=== PATIENT | female | born 1995 | race Caucasian/White ===

== ENCOUNTER 2018-07-18 10:44 | Emergency (ER) | payer BC, SELFPAY ==
[2018-07-18] MEDS ORDERED: DIPHENHYDRAMINE 25 MG TAB/CAP ONE (11:41)
--- NOTE | 2018-07-18 12:33 | ER ---
Nurse's Notes [facility] Name: Kathy Grier Age: 23 yrs Sex: Female : 1995 Arrival Date: 07/18/2018 Time: 10:48 Bed 20 Private MD: Diagnosis: Acute tonsillitis;Urticaria, unspecified Presentation: 07/18 11:06 Presenting complaint: Patient states: migraine started last night and took Theraflu and sv Nyquil, woke up this morning with a rash widespread over body. c/o n/v. Transition of care: patient was not received from another setting of care. Onset of symptoms was July 18, 2018. Care prior to arrival: None. 11:06 Method Of Arrival: Ambulatory sv 11:06 Acuity: CHITO 3 sv 12:33 Risk Assessment: Do you want to hurt yourself or someone else? Patient reports no aj1 desire to harm self or others. Initial Sepsis Screen: Does the patient meet any 2 criteria? No. Patient's initial sepsis screen is negative. Does the patient have a suspected source of infection? No. Patient's initial sepsis screen is negative. 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 - Social history:: Smoking status: Patient/guardian denies using tobacco. - Ebola Screening: : Patient denies travel to an Ebola-affected area in the 21 days before illness onset. Screenin:43 Abuse screen: Denies threats or abuse. Denies injuries from another. Nutritional aj1 screening: No deficits noted. Tuberculosis screening: No symptoms or risk factors identified. 12:33 Fall Risk None identified. aj1 Assessment: 11:43 General: Appears in no apparent distress. comfortable, Behavior is calm, cooperative, aj1 appropriate for age. Pain: Denies pain. Neuro: Level of Consciousness is awake, alert, obeys commands, Oriented to person, place, time, situation. Cardiovascular: Patient's skin is warm and dry. Respiratory: Airway is patent Respiratory effort is even, unlabored, Respiratory pattern is regular, symmetrical. GI: Reports nausea. : No signs and/or symptoms were reported regarding the genitourinary system. EENT: No signs and/or symptoms were reported regarding the EENT system. Derm: Rash noted that is red, raised, on back, abdomen, right arm, left arm, right leg and left leg. Musculoskeletal: No signs and/or symptoms reported regarding the musculoskeletal system. Circulation, motion, and sensation intact. 12:33 Reassessment: Patient appears in no apparent distress at this time. No changes from aj1 previously documented assessment. Patient and/or family updated on plan of care and expected duration. Pain level reassessed. Patient is alert, oriented x 3, equal unlabored respirations, skin warm/dry/pink. Vital Signs: 11:07 BP 134 / 85; Pulse 83; Resp 18; Temp 98.1(O); Pulse Ox 99% ; Weight 97.07 kg; Height 5 sv ft. 9 in. (175.26 cm); Pain 0/10; 11:07 Body Mass Index 31.60 (97.07 kg, 175.26 cm) sv ED Course: 10:48 Patient arrived in ED. tw3 11:07 Triage completed. sv 11:08 Arm band placed on. sv 11:09 Mildred Moya, MIGUELINA is Primary Nurse. aj1 11:17 Eloy Haas PA is PHCP. cp 11:17 Jose Martins MD is Attending Physician. cp 11:43 Patient has correct armband on for positive identification. Bed in low position. Call aj1 light in reach. Side rails up X 1. 11:43 No provider procedures requiring assistance completed. aj1 12:33 Patient did not have IV access during this emergency room visit. aj1 Administered Medications: 11:41 Drug: Benadryl 50 mg Route: PO; aj1 12:29 Follow up: Response: No adverse reaction aj1 12:29 Drug: Decadron 10 mg Route: PO; aj1 12:52 Follow up: Response: No adverse reaction aj1 12:29 Drug: Pepcid 20 mg Route: PO; aj1 12:52 Follow up: Response: No adverse reaction aj1 Outcome: 12:32 Discharge ordered by . cp 12:53 Discharged to home ambulatory. aj1 12:53 Condition: good 12:53 Discharge instructions given to patient, Instructed on discharge instructions, follow up and referral plans. medication usage, Demonstrated understanding of instructions, follow-up care, medications, Prescriptions given X 3. 12:53 Patient left the ED. aj1 Signatures: Mildred Moya RN RN aj1 Lila Steven RN RN Eloy Albert, NICOLE Tariq, Kandace tw3
--- NOTE | 2018-07-18 12:33 | EDPHYS ---
Physician Documentation [facility] Name: Kathy Grier Age: 23 yrs Sex: Female : 1995 Arrival Date: 07/18/2018 Time: 10:48 Bed 20 Private MD: ED Physician Jose Martins HPI: 07/18 11:25 This 23 yrs old Female presents to ER via Ambulatory with complaints of Rash. cp 11:25 The patient's rash thought to be caused by medication. The rash is located on the body cp diffusely. The rash can be described as urticarial. Onset: The symptoms/episode began/occurred this morning. 11:25 Patient reports she took OTC Theraflu and Nyquil last night and woke up this morning cp with hrash. Patient reports she has taken Nyquil previously w/o developing rash but Theraflu is new. 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 - Social history:: Smoking status: Patient/guardian denies using tobacco. - Ebola Screening: : Patient denies travel to an Ebola-affected area in the 21 days before illness onset. ROS: 11:30 Constitutional: Negative for body aches, chills, fever, poor PO intake. cp 11:30 Eyes: Negative for injury, pain, redness, and discharge. cp 11:30 ENT: Positive for sore throat, Negative for drainage from ear(s), ear pain, difficulty swallowing, difficulty handling secretions. 11:30 Cardiovascular: Negative for chest pain, edema, palpitations. 11:30 Respiratory: Negative for cough, shortness of breath, wheezing. 11:30 Abdomen/GI: Negative for abdominal pain, vomiting, diarrhea, constipation. 11:30 : Negative for urinary symptoms. 11:30 Skin: Positive for rash, diffusely. 11:30 Neuro: Negative for altered mental status, dizziness, headache, weakness. 11:30 All other systems are negative. Exam: 11:35 Constitutional: The patient appears in no acute distress, alert, awake, non-toxic, well cp developed, well nourished. 11:35 Head/Face: Normocephalic, atraumatic. cp 11:35 Eyes: Periorbital structures: appear normal, Conjunctiva: normal, no exudate, no injection, Sclera: no appreciated abnormality, Lids and lashes: appear normal, bilaterally. 11:35 ENT: External ear(s): are unremarkable, Ear canal(s): are normal, clear, TM's: bulging, is not appreciated, bilaterally, dullness, bilaterally, erythema, is not appreciated, bilaterally, Nose: is normal, Mouth: Lips: moist, Oral mucosa: pink and intact, moist, Posterior pharynx: Airway: no evidence of obstruction, patent, Tonsils: bilaterally enlarged, with erythema, with exudate, Uvula: midline, erythema, that is moderate, Voice: is normal. 11:35 Neck: ROM/movement: is normal, is supple, without pain, no range of motions limitations, no meningismus, no nuchal rigidity, Lymph nodes: lymphadenopathy is appreciated, anterior cervical nodes. 11:35 Chest/axilla: Palpation: is normal, no crepitus, no tenderness. 11:35 Cardiovascular: Rate: normal, Rhythm: regular, Edema: is not appreciated, JVD: is not appreciated. 11:35 Respiratory: the patient does not display signs of respiratory distress, Respirations: normal, no use of accessory muscles, no retractions, no splinting, no tachypnea, labored breathing, is not present, Breath sounds: are clear throughout, no decreased breath sounds, no stridor, no wheezing. 11:35 Abdomen/GI: Exam negative for discomfort, distension, guarding. 11:35 Skin: consistent with urticaria, and is diffusely located. 11:35 Neuro: Orientation: to person, place \T\ time. Mentation: is normal, Cerebellar function: is grossly normal, Motor: moves all fours, strength is normal, Sensation: is normal. Vital Signs: 11:07 BP 134 / 85; Pulse 83; Resp 18; Temp 98.1(O); Pulse Ox 99% ; Weight 97.07 kg; Height 5 sv ft. 9 in. (175.26 cm); Pain 0/10; 11:07 Body Mass Index 31.60 (97.07 kg, 175.26 cm) sv MDM: 11:18 Patient medically screened. 12:30 Data reviewed: vital signs, nurses notes, lab test result(s), and as a result, I will cp discharge patient. 12:30 Counseling: I had a detailed discussion with the patient and/or guardian regarding: the cp historical points, exam findings, and any diagnostic results supporting the discharge/admit diagnosis, lab results, to return to the emergency department if symptoms worsen or persist or if there are any questions or concerns that arise at home. 07/18 11:24 Order name: Strep; Complete Time: 12:07 cp 07/18 12:07 Interpretation: Reviewed. 07/18 11:24 Order name: Influenza Screen (a \T\ B); Complete Time: 12:25 07/18 12:25 Interpretation: Reviewed. 07/18 11:57 Order name: Urine Dipstick--Ancillary (enter results) [facility] 07/18 11:58 Order name: Urine --Ancillary (enter results) [facility] 07/18 12:05 Order name: Throat Culture [facility] 07/18 11:24 Order name: Urine Test (obtain specimen); Complete Time: 12:29 cp 07/18 11:24 Order name: Urine Dipstick-Ancillary (obtain specimen); Complete Time: 12:29 cp Administered Medications: 11:41 Drug: Benadryl 50 mg Route: PO; aj1 12:29 Follow up: Response: No adverse reaction aj1 12:29 Drug: Decadron 10 mg Route: PO; aj1 12:52 Follow up: Response: No adverse reaction aj1 12:29 Drug: Pepcid 20 mg Route: PO; aj1 12:52 Follow up: Response: No adverse reaction aj1 Disposition: 07/19 07:05 Co-signature as Attending Physician, Jose Martins MD I agree with the assessment and wa plan of care. Disposition: 07/18/18 12:32 Discharged to Home. Impression: Acute tonsillitis, Urticaria, unspecified. - Condition is Stable. - Discharge Instructions: Hives, Tonsillitis. - Prescriptions for Clindamycin HCl 300 mg Oral Capsule - take 1 capsule by ORAL route every 6 hours for 10 days; 40 capsule. Medrol (John) 4 mg Oral Tablets, Dose Pack - take 1 tablet by ORAL route as directed - follow package instructions; 1 packet. Pepcid 20 mg Oral Tablet - take 1 tablet by ORAL route every 12 hours for 5 days; 10 tablet. - Medication Reconciliation Form, Thank You Letter, Antibiotic Education, Prescription Opioid Use form. - Follow up: Private Physician; When: 48 Hours; Reason: Recheck today's complaints. - Problem is new. - Symptoms have improved. Signatures: Dispatcher [employer] EDMildred Tristan RN RN aj1 Lila Steven RN RN sv Eloy Haas PA PA cp Appiah, William, MD MD in Corrections: (The following items were deleted from the chart) 07/18 12:53 12:32 07/18/2018 12:32 Discharged to Home. Impression: Acute tonsillitis; Urticaria, aj1 unspecified. Condition is Stable. Forms are Medication Reconciliation Form, Thank You Letter, Antibiotic Education, Prescription Opioid Use. Follow up: Private Physician; When: 48 Hours; Reason: Recheck today's complaints. Problem is new. Symptoms have improved. cp
[2018-07-18] MEDS ORDERED: DEXAMETHASONE 4 MG TAB ONE (12:37)
[2018-07-18] MEDS ORDERED: FAMOTIDINE 20 MG TAB ONE (12:37)
[2018-07-18 14:40] LABS: Urine Blood NEGATIVE (NEG); Urine Glucose NEGATIVE (NEG); Urine Protein NEGATIVE (NEG)
== END 2018-07-18 12:53 | disposition home or self-care (01) ==
LOC: ER 10:44
DX: J03.90 Acute tonsillitis, unspecified (principal); L50.9 Urticaria, unspecified; Z88.8 Allergy status to other drugs, medicaments and biological substances
CPT/HCPCS: 81003; 81025; 87070; 87081; 87804; 99283

== ENCOUNTER 2018-07-20 10:18 | Emergency (ER) | payer BC, SELFPAY ==
[2018-07-20] MEDS ORDERED: MAGNE/ALUM HYDROXD 30 ML UCUP ONE (11:03)
[2018-07-20] MEDS ORDERED: DEXAMETHASONE 10 MG/ML VIAL ONE (11:03)
[2018-07-20] MEDS ORDERED: CEFTRIAXONE/SWI 1gm 1 GM/10 ML SYR ONE (11:04)
[2018-07-20] MEDS ORDERED: LIDOCAINE VISCOUS 2% SOLN 15 ML UDC ONE (11:04)
[2018-07-20] MEDS ORDERED: NA CHLORIDE 0.9% 1,000 ML ONE (11:04)
[2018-07-20 11:18] LABS: BUN Blood Urea Nitrogen 9 mg/dL (7-18); Bicarbonate 26 mmol/L (21-32); Glucose Level 94 mg/dL (74-106); Potassium 3.9 mmol/L (3.5-5.1); Sodium Level 140 mmol/L (136-145)
--- NOTE | 2018-07-20 11:29 | ER ---
Nurse's Notes [facility] Name: Kathy Grier Age: 23 yrs Sex: Female : 1995 Arrival Date: 07/20/2018 Time: 10:22 Bed 12 Private MD: Diagnosis: Streptococcal pharyngitis Presentation: 07/20 10:22 Presenting complaint: Patient states: I was seen here a couple days ago, reports sg started medications but is not getting better, tonsils are swelling up more, has not had follow up with ENT. Transition of care: patient was not received from another setting of care. Onset of symptoms was July 20, 2018. Risk Assessment: Do you want to hurt yourself or someone else? Patient reports no desire to harm self or others. Initial Sepsis Screen: Does the patient meet any 2 criteria? No. Patient's initial sepsis screen is negative. Does the patient have a suspected source of infection? No. Patient's initial sepsis screen is negative. Care prior to arrival: None. 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 - Social history:: Smoking status: Patient/guardian denies using tobacco. - Ebola Screening: : Patient negative for fever greater than or equal to 101.5 degrees Fahrenheit, and additional compatible Ebola Virus Disease symptoms Patient denies exposure to infectious person Patient denies travel to an Ebola-affected area in the 21 days before illness onset No symptoms or risks identified at this time. Screenin:47 Abuse screen: Denies threats or abuse. Denies injuries from another. Nutritional iw screening: No deficits noted. Tuberculosis screening: No symptoms or risk factors identified. Fall Risk IV access (20 points). Assessment: 11:05 General: Appears in no apparent distress. uncomfortable, Behavior is calm, cooperative. iw General: Reports feeling ill for > 3 days, fatigue for. Pain: Complains of pain in throat. Pain: Complains of pain in head. Neuro: Level of Consciousness is awake, alert, obeys commands, Oriented to person, place, time, situation. Cardiovascular: Patient's skin is warm and dry. Respiratory: Airway is patent Respiratory effort is even, unlabored, Breath sounds are clear bilaterally. EENT: Throat is reddened has patchy exudate has enlarged tonsils bilaterally with gag reflex present, Reports difficulty swallowing. Derm: Skin is intact, is healthy with good turgor. Musculoskeletal: Range of motion: intact in all extremities. Vital Signs: 10:23 BP 132 / 83; Pulse 100; Resp 19; Pulse Ox 98% on R/A; Weight 97.07 kg; Height 5 ft. 9 sg in. (175.26 cm); Pain 8/10; 10:25 Temp 99.8(TE); sg 10:23 Body Mass Index 31.60 (97.07 kg, 175.26 cm) sg ED Course: 10:22 Patient arrived in ED. sg 10:23 Triage completed. sg 10:23 [facility]C [facility]. kb 10:23 Dionte Guadarrama MD is Attending Physician. kb 10:25 Arm band placed on. sg 10:47 Zahra Aranda, RN is Primary Nurse. iw 10:47 Initial lab(s) drawn, by me, sent to lab. Inserted saline lock: 22 gauge in right iw antecubital area, using aseptic technique. 11:05 Patient has correct armband on for positive identification. iw 11:48 No provider procedures requiring assistance completed. IV discontinued, intact, iw bleeding controlled, No redness/swelling at site. Pressure dressing applied. Administered Medications: 11:00 Drug: Rocephin 1 grams Route: IV; Rate: calculated rate; Site: right antecubital; iw 11:00 Drug: NS 0.9% 1000 ml Route: IV; Rate: 1000 ml; Site: right antecubital; iw 11:01 Drug: Decadron - Dexamethasone 10 mg Route: IVP; Site: right antecubital; iw 11:04 Drug: GI Cocktail without - (Maalox Suspension 30 ml, Lidocaine Liquid 2 % 15 iw ml) Route: PO; Outcome: 11:28 Discharge ordered by . kb 11:48 Discharged to home ambulatory, with friend. iw 11:48 Condition: good 11:48 Discharge instructions given to patient, Instructed on discharge instructions, follow up and referral plans. medication usage, Demonstrated understanding of instructions, follow-up care, medications, Prescriptions given X 1. 11:49 Patient left the ED. iw Signatures: Morena Ramirez FNP-C FNP-Aamir Rico, RN RN sg Zahra Aranda RN RN iw
--- NOTE | 2018-07-20 11:29 | EDPHYS ---
Physician Documentation [facility] Name: Kathy Grier Age: 23 yrs Sex: Female : 1995 Arrival Date: 07/20/2018 Time: 10:22 Bed 12 Private MD: ED Physician Dionte Guadarrama HPI: 07/20 11:02 This 23 yrs old Female presents to ER via Ambulatory with complaints of Sore kb Throat. 11:02 The patient presents with sore throat. The patient describes throat pain as constant. kb Onset: The symptoms/episode began/occurred last week. Severity of symptoms: At their worst the symptoms were moderate, in the emergency department the symptoms are unchanged. Modifying factors: The symptoms are alleviated by nothing, the symptoms are aggravated by swallowing, Patient's oral intake status: limited fluid intake, limited food intake, Denies contact with similarly ill indivduals. Associated signs and symptoms: Pertinent positives: fever, Sore throat. The patient has not experienced similar symptoms in the past. The patient has been recently seen at the [facility] Emergency Department, last week, for similar complaints labs were performed, was given a prescription for antibiotics. 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 - Social history:: Smoking status: Patient/guardian denies using tobacco. - Ebola Screening: : Patient negative for fever greater than or equal to 101.5 degrees Fahrenheit, and additional compatible Ebola Virus Disease symptoms Patient denies exposure to infectious person Patient denies travel to an Ebola-affected area in the 21 days before illness onset No symptoms or risks identified at this time. ROS: 11:01 Neck: Negative for injury, pain, and swelling, Cardiovascular: Negative for chest pain, kb palpitations, and edema, Respiratory: Negative for shortness of breath, cough, wheezing, and pleuritic chest pain, Abdomen/GI: Negative for abdominal pain, nausea, vomiting, diarrhea, and constipation, Back: Negative for injury and pain, MS/Extremity: Negative for injury and deformity, Skin: Negative for injury, rash, and discoloration, Neuro: Negative for headache, weakness, numbness, tingling, and seizure. 11:01 Constitutional: Positive for fever. 11:01 ENT: Positive for sore throat. Exam: 11:01 Constitutional: This is a well developed, well nourished patient who is awake, alert, kb and in no acute distress. Head/Face: Normocephalic, atraumatic. Chest/axilla: Normal chest wall appearance and motion. Nontender with no deformity. No lesions are appreciated. Cardiovascular: Regular rate and rhythm with a normal S1 and S2. No gallops, murmurs, or rubs. Normal PMI, no JVD. No pulse deficits. Respiratory: Lungs have equal breath sounds bilaterally, clear to auscultation and percussion. No rales, rhonchi or wheezes noted. No increased work of breathing, no retractions or nasal flaring. Abdomen/GI: Soft, non-tender, with normal bowel sounds. No distension or tympany. No guarding or rebound. No evidence of tenderness throughout. Skin: Warm, dry with normal turgor. Normal color with no rashes, no lesions, and no evidence of cellulitis. MS/ Extremity: Pulses equal, no cyanosis. Neurovascular intact. Full, normal range of motion. Neuro: Awake and alert, GCS 15, oriented to person, place, time, and situation. Cranial nerves II-XII grossly intact. Motor strength 5/5 in all extremities. Sensory grossly intact. Cerebellar exam normal. Normal gait. 11:01 ENT: Posterior pharynx: Airway: normal, Tonsils: bilaterally enlarged, with erythema, with exudate, Uvula: normal, midline, swelling, that is marked, erythema, that is marked, exudate, that is moderate. Vital Signs: 10:23 BP 132 / 83; Pulse 100; Resp 19; Pulse Ox 98% on R/A; Weight 97.07 kg; Height 5 ft. 9 sg in. (175.26 cm); Pain 8/10; 10:25 Temp 99.8(TE); sg 10:23 Body Mass Index 31.60 (97.07 kg, 175.26 cm) sg MDM: 10:30 Patient medically screened. kb 11:02 Data reviewed: vital signs, nurses notes. Data interpreted: Pulse oximetry: on room air kb is 98 %. Interpretation: normal. 11:28 Counseling: I had a detailed discussion with the patient and/or guardian regarding: the kb historical points, exam findings, and any diagnostic results supporting the discharge/admit diagnosis, lab results, the need for outpatient follow up, a family practitioner, to return to the emergency department if symptoms worsen or persist or if there are any questions or concerns that arise at home. 11:28 Data reviewed: old medical records, Throat culture from recent visit shows 3+ beta kb hemolytic strep. 07/20 10:35 Order name: Basic Metabolic Panel; Complete Time: 11:20 kb 07/20 10:35 Order name: Swisher Screen Profile; Complete Time: 11:26 kb 07/20 10:35 Order name: IV Start; Complete Time: 10:47 kb Administered Medications: 11:00 Drug: Rocephin 1 grams Route: IV; Rate: calculated rate; Site: right antecubital; iw 11:00 Drug: NS 0.9% 1000 ml Route: IV; Rate: 1000 ml; Site: right antecubital; iw 11:01 Drug: Decadron - Dexamethasone 10 mg Route: IVP; Site: right antecubital; iw 11:04 Drug: GI Cocktail without - (Maalox Suspension 30 ml, Lidocaine Liquid 2 % 15 iw ml) Route: PO; Disposition: 15:14 Co-signature as Attending Physician, Dionte Guadarrama MD. rn Disposition: 07/20/18 11:28 Discharged to Home. Impression: Streptococcal pharyngitis. - Condition is Stable. - Discharge Instructions: Strep Throat, [id number]. - Prescriptions for Augmentin 875- 125 mg Oral Tablet - take 1 tablet by ORAL route every 12 hours for 10 days; 20 tablet. - Medication Reconciliation Form, Thank You Letter, Antibiotic Education, Prescription Opioid Use, Work release form form. - Follow up: Emergency Department; When: As needed; Reason: Worsening of condition. Follow up: Private Physician; When: 2 - 3 days; Reason: Recheck today's complaints, Continuance of care, Re-evaluation by your physician. Signatures: Dispatcher [employer] Morena Moss FNP-C FNP-Ckb Gay, Steven, RN RN sg Williams, Irene, RN RN iw Nieto, Roman, MD MD rn unit manager: (The following items were deleted from the chart) 11:49 11:28 07/20/2018 11:28 Discharged to Home. Impression: Streptococcal pharyngitis. iw Condition is Stable. Forms are Medication Reconciliation Form, Thank You Letter, Antibiotic Education, Prescription Opioid Use. Follow up: Emergency Department; When: As needed; Reason: Worsening of condition. Follow up: Private Physician; When: 2 - 3 days; Reason: Recheck today's complaints, Continuance of care, Re-evaluation by your physician. kb
== END 2018-07-20 11:49 | disposition home or self-care (01) ==
LOC: ER 10:18
DX: J02.0 Streptococcal pharyngitis (principal); R03.0 Elevated blood-pressure reading, without diagnosis of hypertension; Z88.8 Allergy status to other drugs, medicaments and biological substances
CPT/HCPCS: 36415; 80048; 86308; 96374; 96375; 99284; J0696; J1100; J7030

== ENCOUNTER 2018-07-31 17:55 | Emergency (ER) | payer BC ==
--- NOTE | 2018-07-31 18:54 | EDPHYS ---
Physician Documentation [facility] Name: Kathy Grier Age: 23 yrs Sex: Female : 1995 Arrival Date: 07/31/2018 Time: 17:57 Bed 12 Private MD: ED Physician Diotne Guadarrama HPI: 07/31 18:48 This 23 yrs old Female presents to ER via Ambulatory with complaints of Sore kb Throat. 18:48 The patient presents with sore throat. The patient describes throat pain as constant. kb Onset: The symptoms/episode began/occurred last night. Severity of symptoms: At their worst the symptoms were mild, moderate, in the emergency department the symptoms are unchanged. Modifying factors: The symptoms are alleviated by nothing, the symptoms are aggravated by swallowing, Patient's oral intake status: limited fluid intake, limited food intake, Denies contact with similarly ill indivduals. Associated signs and symptoms: Pertinent positives: Sore throat vomiting. The patient has experienced similar episodes in the past, a few times. The patient has not recently seen a physician. Pt reports she recently had strep, took augmentin and symptoms resolved. Last night started vomiting, then throat started hurting again. Reports throat has been sore since then. . 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 - Social history:: Smoking status: Patient/guardian denies using tobacco. - Ebola Screening: : No symptoms or risks identified at this time. ROS: 18:48 Constitutional: Negative for fever, chills, and weight loss, Neck: Negative for injury, kb pain, and swelling, Cardiovascular: Negative for chest pain, palpitations, and edema, Respiratory: Negative for shortness of breath, cough, wheezing, and pleuritic chest pain, Back: Negative for injury and pain, : Negative for injury, bleeding, discharge, and swelling, MS/Extremity: Negative for injury and deformity, Skin: Negative for injury, rash, and discoloration, Neuro: Negative for headache, weakness, numbness, tingling, and seizure. 18:48 ENT: Positive for sore throat. 18:48 Abdomen/GI: Positive for nausea and vomiting. Exam: 18:48 Constitutional: This is a well developed, well nourished patient who is awake, alert, kb and in no acute distress. Head/Face: Normocephalic, atraumatic. Neck: Trachea midline, no thyromegaly or masses palpated, and no cervical lymphadenopathy. Supple, full range of motion without nuchal rigidity, or vertebral point tenderness. No Meningismus. Chest/axilla: Normal chest wall appearance and motion. Nontender with no deformity. No lesions are appreciated. Cardiovascular: Regular rate and rhythm with a normal S1 and S2. No gallops, murmurs, or rubs. Normal PMI, no JVD. No pulse deficits. Respiratory: Lungs have equal breath sounds bilaterally, clear to auscultation and percussion. No rales, rhonchi or wheezes noted. No increased work of breathing, no retractions or nasal flaring. Abdomen/GI: Soft, non-tender, with normal bowel sounds. No distension or tympany. No guarding or rebound. No evidence of tenderness throughout. Back: No spinal tenderness. No costovertebral tenderness. Full range of motion. Skin: Warm, dry with normal turgor. Normal color with no rashes, no lesions, and no evidence of cellulitis. MS/ Extremity: Pulses equal, no cyanosis. Neurovascular intact. Full, normal range of motion. Neuro: Awake and alert, GCS 15, oriented to person, place, time, and situation. Cranial nerves II-XII grossly intact. Motor strength 5/5 in all extremities. Sensory grossly intact. Cerebellar exam normal. Normal gait. 18:48 ENT: Posterior pharynx: Airway: normal, Tonsils: bilaterally enlarged, with erythema, Uvula: edematous, erythema, swelling, that is mild, erythema, that is marked. Vital Signs: 18:04 BP 128 / 99; Pulse 105; Resp 18 S; Temp 99.2(O); Pulse Ox 97% on R/A; Weight 97.07 kg aa5 (R); Height 5 ft. 8 in. (172.72 cm) (R); Pain 7/10; 18:04 Body Mass Index 32.54 (97.07 kg, 172.72 cm) aa5 MDM: 18:03 Patient medically screened. kb 18:51 Data reviewed: vital signs, nurses notes. Data interpreted: Pulse oximetry: on room air kb is 97 %. Interpretation: normal. Counseling: I had a detailed discussion with the patient and/or guardian regarding: the historical points, exam findings, and any diagnostic results supporting the discharge/admit diagnosis, lab results, the need for outpatient follow up, a family practitioner, to return to the emergency department if symptoms worsen or persist or if there are any questions or concerns that arise at home. 07/31 18:10 Order name: Strep; Complete Time: 18:48 kb 07/31 18:44 Order name: Throat Culture EDMS Administered Medications: 19:25 Drug: Doxycycline 100 mg Route: PO; aj1 Disposition: 07/31/18 18:54 Discharged to Home. Impression: Acute pharyngitis, unspecified. - Condition is Stable. - Discharge Instructions: Strep Throat, [id number], Pharyngitis, [id number]. - Prescriptions for Doxycycline Hyclate 100 mg Oral Tablet - take 1 tablet by ORAL route every 12 hours; 20 tablet. Zofran 4 mg Oral Tablet - take 1 tablet by ORAL route every 6 hours As needed; 20 tablet. - Medication Reconciliation Form, Thank You Letter, Antibiotic Education, Prescription Opioid Use, Work release form form. - Follow up: Emergency Department; When: As needed; Reason: Worsening of condition. Follow up: Private Physician; When: 2 - 3 days; Reason: Recheck today's complaints, Continuance of care, Re-evaluation by your physician. Follow up: Lila Conner MD; When: 2 - 3 days; Reason: Recheck today's complaints. Addendum: 08/02/2018 07:03 Co-signature as Attending Physician, Dionte Guadarrama MD. r n Signatures: Dispatcher [employer] [facility] Morena Ramirez, GRACE PERLAP-Mildred Escoto RN RN aj1 Dionte Guadarrama MD MD rn Calderon, Audri, RN RN aa5 Corrections: (The following items were deleted from the chart) 07/31 18:54 18:54 07/31/2018 18:54 Discharged to Home. Impression: Acute pharyngitis, unspecified. kb Condition is Stable. Forms are Medication Reconciliation Form, Thank You Letter, Antibiotic Education, Prescription Opioid Use. Follow up: Emergency Department; When: As needed; Reason: Worsening of condition. Follow up: Private Physician; When: 2 - 3 days; Reason: Recheck today's complaints, Continuance of care, Re-evaluation by your physician. kb 19:25 18:54 07/31/2018 18:54 Discharged to Home. Impression: Acute pharyngitis, unspecified. aj1 Condition is Stable. Discharge Instructions: Strep Throat, Rfkc-ls-[id number], Pharyngitis, Yogs-qw-Dnbe. Prescriptions for Doxycycline Hyclate 100 mg Oral Tablet - take 1 tablet by ORAL route every 12 hours; 20 tablet. and Forms are Medication Reconciliation Form, Thank You Letter, Antibiotic Education, Prescription Opioid Use. Follow up: Emergency Department; When: As needed; Reason: Worsening of condition. Follow up: Private Physician; When: 2 - 3 days; Reason: Recheck today's complaints, Continuance of care, Re-evaluation by your physician. Follow up: Lila Conner; When: 2 - 3 days; Reason: Recheck today's complaints. kb 19:32 19:25 07/31/2018 18:54 Discharged to Home. Impression: Acute pharyngitis, unspecified. aj1 Condition is Stable. Discharge Instructions: Strep Throat, Mvyr-hl-Enmp, Pharyngitis, [id number]-cc-[id number]. Prescriptions for Doxycycline Hyclate 100 mg Oral Tablet - take 1 tablet by ORAL route every 12 hours; 20 tablet, Zofran 4 mg Oral Tablet - take 1 tablet by ORAL route every 6 hours As needed; 20 tablet. and Forms are Medication Reconciliation Form, Thank You Letter, Antibiotic Education, Prescription Opioid Use. Follow up: Emergency Department; When: As needed; Reason: Worsening of condition. Follow up: Private Physician; When: 2 - 3 days; Reason: Recheck today's complaints, Continuance of care, Re-evaluation by your physician. Follow up: Lila Conner; When: 2 - 3 days; Reason: Recheck today's complaints. aj1
--- NOTE | 2018-07-31 18:54 | ER ---
Nurse's Notes [facility] Name: Kathy Grier Age: 23 yrs Sex: Female : 1995 Arrival Date: 07/31/2018 Time: 17:57 Bed 12 Private MD: Diagnosis: Acute pharyngitis, unspecified Presentation: 07/31 18:02 Presenting complaint: Patient states: sore throat that began last night. Reports cough aa5 today. 18:02 Transition of care: patient was not received from another setting of care. Onset of aa5 symptoms was July 2018. Risk Assessment: Do you want to hurt yourself or someone else? Patient reports no desire to harm self or others. Initial Sepsis Screen: Does the patient meet any 2 criteria? No. Patient's initial sepsis screen is negative. Does the patient have a suspected source of infection? No. Patient's initial sepsis screen is negative. Care prior to arrival: None. 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 - Social history:: Smoking status: Patient/guardian denies using tobacco. - Ebola Screening: : No symptoms or risks identified at this time. Screenin:12 Abuse screen: Denies threats or abuse. Denies injuries from another. Nutritional mg2 screening: No deficits noted. Tuberculosis screening: No symptoms or risk factors identified. Fall Risk None identified. Assessment: 18:11 General: Appears in no apparent distress. comfortable, Behavior is calm, cooperative. mg2 Pain: Complains of pain in throat. Neuro: Level of Consciousness is awake, alert, obeys commands, Oriented to person, place, time, situation. Cardiovascular: Capillary refill < 3 seconds Patient's skin is warm and dry. Respiratory: Airway is patent Respiratory effort is even, unlabored, Breath sounds are clear bilaterally. in right upper lobe, left upper lobe, right middle lobe and left lower lobe. GI: No signs and/or symptoms were reported involving the gastrointestinal system. : No signs and/or symptoms were reported regarding the genitourinary system. EENT: Derm: Skin is intact, is healthy with good turgor, Skin is pink, warm \T\ dry. normal. Musculoskeletal: No signs and/or symptoms reported regarding the musculoskeletal system. Vital Signs: 18:04 BP 128 / 99; Pulse 105; Resp 18 S; Temp 99.2(O); Pulse Ox 97% on R/A; Weight 97.07 kg aa5 (R); Height 5 ft. 8 in. (172.72 cm) (R); Pain 7/10; 18:04 Body Mass Index 32.54 (97.07 kg, 172.72 cm) aa5 ED Course: 17:57 Patient arrived in ED. as 17:57 Morena Ramirez FNP-C [facility]. kb 17:57 Dionte Guadarrama MD is Attending Physician. kb 18:02 Jam Jones, MIGUELINA is Primary Nurse. mg2 18:02 Arm band placed on. aa5 18:03 Triage completed. aa5 18:12 No provider procedures requiring assistance completed. Patient did not have IV access mg2 during this emergency room visit. 18:54 Lila Conner MD is Referral Physician. kb 19:28 Primary Nurse role handed off by Jam Jones RN aj1 Administered Medications: 19:25 Drug: Doxycycline 100 mg Route: PO; aj1 Outcome: 18:54 Discharge ordered by . kb 19:25 Discharged to home ambulatory. aj1 19:25 Condition: good 19:25 Discharge instructions given to patient, Instructed on discharge instructions, follow up and referral plans. medication usage, Demonstrated understanding of instructions, follow-up care, medications, Prescriptions given X 2. 19:25 Patient left the ED. aj1 19:32 Patient left the ED. aj1 Signatures: Morena Ramirez FNP-C FNP-Mildred Escoto RN RN aj1 Cami Tran Audri RN RN aa5 Jam Jones RN RN mg2 Corrections: (The following items were deleted from the chart) 18:07 18:04 97.07 kg Reported; Height 5 ft. 8 in. Reported; BMI: 32.5; Pain 7/10; aa5 aa5
[2018-07-31] MEDS ORDERED: DOXYCYCLINE 100 MG CAP PO ONE (19:28)
== END 2018-07-31 19:32 | disposition home or self-care (01) ==
LOC: ER 17:55
DX: J02.9 Acute pharyngitis, unspecified (principal)
CPT/HCPCS: 87070; 87081; 99283

== ENCOUNTER 2018-08-18 15:14 | Emergency (ER) | payer BC ==
--- NOTE | 2018-08-18 15:46 | EDPHYS ---
Physician Documentation [facility] Name: Kathy Grier Age: 23 yrs Sex: Female : 1995 Arrival Date: 08/18/2018 Time: 15:18 Bed 12 Private MD: ED Physician Dionte Guadarrama HPI: 08/18 15:33 This 23 yrs old Female presents to ER via Ambulatory with complaints of Rash. kb 15:34 The patient's rash thought to be caused by scabies. The rash is located on the abdomen kb and left arm and right arm. The rash can be described as urticarial. Associated signs and symptoms: Pertinent positives: itching. Severity of symptoms: At their worst the symptoms were moderate in the emergency department the symptoms are unchanged. The patient has experienced a previous episode, approximately 4 years ago. The patient has not recently seen a physician. Pt reports rash to bilateral arms and abd that started 2 days ago. States she has had scabies in the past and it feels the same. Roommate had scabies 2 weeks ago.. 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 - Social history:: Smoking status: Patient/guardian denies using tobacco. - Ebola Screening: : No symptoms or risks identified at this time. ROS: 15:34 Constitutional: Negative for fever, chills, and weight loss, Cardiovascular: Negative kb for chest pain, palpitations, and edema, Respiratory: Negative for shortness of breath, cough, wheezing, and pleuritic chest pain, Abdomen/GI: Negative for abdominal pain, nausea, vomiting, diarrhea, and constipation, : Negative for injury, bleeding, discharge, and swelling, MS/Extremity: Negative for injury and deformity, Neuro: Negative for headache, weakness, numbness, tingling, and seizure. 15:34 Skin: Positive for rash, of the abdomen and left arm and right arm. Exam: 15:34 Constitutional: This is a well developed, well nourished patient who is awake, alert, kb and in no acute distress. Head/Face: Normocephalic, atraumatic. Chest/axilla: Normal chest wall appearance and motion. Nontender with no deformity. No lesions are appreciated. Cardiovascular: Regular rate and rhythm with a normal S1 and S2. No gallops, murmurs, or rubs. Normal PMI, no JVD. No pulse deficits. Respiratory: Lungs have equal breath sounds bilaterally, clear to auscultation and percussion. No rales, rhonchi or wheezes noted. No increased work of breathing, no retractions or nasal flaring. Abdomen/GI: Soft, non-tender, with normal bowel sounds. No distension or tympany. No guarding or rebound. No evidence of tenderness throughout. MS/ Extremity: Pulses equal, no cyanosis. Neurovascular intact. Full, normal range of motion. Neuro: Awake and alert, GCS 15, oriented to person, place, time, and situation. Cranial nerves II-XII grossly intact. Motor strength 5/5 in all extremities. Sensory grossly intact. Cerebellar exam normal. Normal gait. 15:34 Skin: consistent with urticaria, on the abdomen and left arm and right arm, hives noted to right upper arm and AC. Vital Signs: 15:26 BP 128 / 70; Pulse 83; Resp 16; Temp 97.8; Pulse Ox 98% on R/A; Weight 97.07 kg; Height la1 5 ft. 9 in. (175.26 cm); 15:26 Body Mass Index 31.60 (97.07 kg, 175.26 cm) la1 MDM: 15:29 Patient medically screened. kb 15:43 Data reviewed: vital signs, nurses notes. Data interpreted: Pulse oximetry: on room air kb is 98 %. Interpretation: normal. Counseling: I had a detailed discussion with the patient and/or guardian regarding: the historical points, exam findings, and any diagnostic results supporting the discharge/admit diagnosis, the need for outpatient follow up, a family practitioner, to return to the emergency department if symptoms worsen or persist or if there are any questions or concerns that arise at home. Administered Medications: 15:41 Drug: Benadryl 25 mg Route: PO; la1 15:44 Follow up: Response: Medication administered at discharge. la1 15:41 Drug: Pepcid 20 mg Route: PO; la1 15:44 Follow up: Response: Medication administered at discharge. la1 Disposition: 16:56 Co-signature as Attending Physician, Dionte Guadarrama MD. rn Disposition: 08/18/18 15:45 Discharged to Home. Impression: Urticaria, Scabies. - Condition is Stable. - Discharge Instructions: Hives, Djyi-nz-Iztu, Scabies, Adult. - Prescriptions for Elimite 5 % Topical Cream - apply 1 application by TOPICAL route one time Wash after 12 hours.; 60 gram. Pepcid 20 mg Oral Tablet - take 1 tablet by ORAL route every 12 hours for 5 days; 10 tablet. - Medication Reconciliation Form, Thank You Letter, Antibiotic Education, Prescription Opioid Use form. - Follow up: Private Physician; When: 2 - 3 days; Reason: Recheck today's complaints, Continuance of care, Re-evaluation by your physician. Follow up: Emergency Department; When: As needed; Reason: Worsening of condition. Signatures: Morena Ramirez, RASCHEL KNITTING MACHINE OPERATOR-C RASCHEL KNITTING MACHINE OPERATOR-CkZahra Pichardo RN RN iw Nieto, Roman, MD MD rn Attema, Lee, RN RN laAdam Corrections: (The following items were deleted from the chart) 15:46 15:34 Skin: consistent with urticaria, on the abdomen and left arm and right arm, kb kb 15:52 15:45 08/18/2018 15:45 Discharged to Home. Impression: Urticaria; Scabies. Condition is iw Stable. Forms are Medication Reconciliation Form, Thank You Letter, Antibiotic Education, Prescription Opioid Use. Follow up: Private Physician; When: 2 - 3 days; Reason: Recheck today's complaints, Continuance of care, Re-evaluation by your physician. Follow up: Emergency Department; When: As needed; Reason: Worsening of condition. kb
--- NOTE | 2018-08-18 15:46 | ER ---
Nurse's Notes [facility] Name: Kathy Grier Age: 23 yrs Sex: Female : 1995 Arrival Date: 08/18/2018 Time: 15:18 Bed 12 Private MD: Diagnosis: Urticaria;Scabies Presentation: 08/18 15:25 Presenting complaint: Patient states: I have had an itchy rash on my arms for about two la1 days, someone staying with us recently was dx with scabies. Transition of care: patient was not received from another setting of care. Onset of symptoms was August 18, 2018. Risk Assessment: Do you want to hurt yourself or someone else? Patient reports no desire to harm self or others. Initial Sepsis Screen: Does the patient meet any 2 criteria? No. Patient's initial sepsis screen is negative. Does the patient have a suspected source of infection? No. Patient's initial sepsis screen is negative. Care prior to arrival: None. 15:25 Method Of Arrival: Ambulatory la1 15:25 Acuity: CHITO 5 la1 Triage Assessment: 15:20 General: Appears in no apparent distress. Pain: Denies pain. 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 - Social history:: Smoking status: Patient/guardian denies using tobacco. - Ebola Screening: : No symptoms or risks identified at this time. Screenin:30 Abuse screen: Denies threats or abuse. Abuse screen: Denies threats or abuse. la1 Nutritional screening: No deficits noted. Tuberculosis screening: No symptoms or risk factors identified. Fall Risk None identified. Assessment: 15:30 General: Appears in no apparent distress. Behavior is calm, cooperative. Neuro: Level la1 of Consciousness is awake, alert, obeys commands, Oriented to person, place, time, situation. Cardiovascular: Capillary refill < 3 seconds Patient's skin is warm and dry. Respiratory: Airway is patent Respiratory effort is even, unlabored. Derm: Rash noted that is itchy, red, raised, urticaria, on right arm and left arm. Vital Signs: 15:26 BP 128 / 70; Pulse 83; Resp 16; Temp 97.8; Pulse Ox 98% on R/A; Weight 97.07 kg; Height la1 5 ft. 9 in. (175.26 cm); 15:26 Body Mass Index 31.60 (97.07 kg, 175.26 cm) la1 ED Course: 15:18 Patient arrived in ED. as 15:26 Triage completed. la1 15:27 Arm band placed on left wrist. la1 15:29 Morena Ramirez FNP-C is PHCP. kb 15:29 Dionte Guadarrama MD is Attending Physician. kb 15:30 Call light in reach. la1 15:31 No provider procedures requiring assistance completed. Patient did not have IV access la1 during this emergency room visit. 15:52 Zahra Aranda, RN is Primary Nurse. iw Administered Medications: 15:41 Drug: Benadryl 25 mg Route: PO; la1 15:44 Follow up: Response: Medication administered at discharge. la1 15:41 Drug: Pepcid 20 mg Route: PO; la1 15:44 Follow up: Response: Medication administered at discharge. la1 Outcome: 15:45 Discharge ordered by . kb 15:51 Discharged to home ambulatory, with friend. iw 15:51 Condition: good 15:51 Discharge instructions given to patient, Instructed on discharge instructions, follow up and referral plans. medication usage, Demonstrated understanding of instructions, follow-up care, medications, Prescriptions given X 2. 15:52 Patient left the ED. iw Signatures: Morena Ramirez FNP-C FNP-Ckb Martinez, Amelia as Zahra Aranda RN RN iw Eduard Lopez RN RN la1
[2018-08-18] MEDS ORDERED: DIPHENHYDRAMINE 25 MG TAB/CAP ONE (15:51)
[2018-08-18] MEDS ORDERED: FAMOTIDINE 20 MG TAB ONE (15:51)
== END 2018-08-18 15:52 | disposition home or self-care (01) ==
LOC: ER 15:14
DX: L50.9 Urticaria, unspecified (principal); B86 Scabies; R03.0 Elevated blood-pressure reading, without diagnosis of hypertension
CPT/HCPCS: 99283

== ENCOUNTER 2018-09-28 20:15 | Emergency (ER) | payer BC ==
[2018-09-28] MEDS ORDERED: KETOROLAC 30 MG/ML INJ ONE (21:44)
[2018-09-28] MEDS ORDERED: CYCLOBENZAPRINE 10 MG TAB ONE (21:44)
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
== END 2018-09-28 22:14 | disposition home or self-care (01) ==
LOC: ER 20:15
DX: S13.4XXA Sprain of ligaments of cervical spine, initial encounter (principal); V47.5XXA Car driver injured in collision with fixed or stationary object in traffic accident, initial encounter; R03.0 Elevated blood-pressure reading, without diagnosis of hypertension
CPT/HCPCS: 96372; 99283